=== PATIENT | male | born 1975 | race Caucasian/White ===

== ENCOUNTER 2020-04-30 06:25 | Day surgery (SDC) | payer BC, SELFPAY ==
[~2020-04-30] VITALS: Ht 188 cm; Wt 93.4 kg
[~2020-04-30 06:25] MED LIST: AZU500 PO
[2020-04-30] MEDS ORDERED: MIDAZOLAM HCL 2 MG/2 ML VIAL (VERSED) IVP PRN (08:15)
[2020-04-30] MEDS ORDERED: ONDANSETRON HCL 4 MG/2 ML VIAL IVP PRN (08:15)
[2020-04-30] MEDS ORDERED: MEPERIDINE HCL/PF 25 MG/ML DISP.SYRIN IVP PRN (08:15)
[2020-04-30] MEDS ORDERED: LR 1,000 ML IV SCH (08:15)
[2020-04-30] MEDS ORDERED: HYDROmorphone 1 MG INJ. 1 MG/ML AMPUL IVP PRN ×2 (08:15)
[2020-04-30 10:33] VITALS: BP_SYST 134
== END 2020-04-30 13:00 | disposition home or self-care (01) ==
LOC: SDS 06:25 → SMU 06:25 → SDS 13:00
PROVIDERS: ATTEND Otolaryngology
DX: J34.89 Other specified disorders of nose and nasal sinuses (principal); J34.2 Deviated nasal septum; J30.1 Allergic rhinitis due to pollen; Z11.59 Encounter for screening for other viral diseases; Z98.890 Other specified postprocedural states; Z79.899 Other long term (current) drug therapy
CPT/HCPCS: 30140; 30520; 88304; 88311; J3465; U0003; 88305